=== PATIENT | female | born 1995 | race African-American/Black ===

== ENCOUNTER 2020-10-18 12:51 | Emergency (ER) | payer MEDICAID, OTHER ==
[~2020-10-18] VITALS: Ht 162.6 cm; Wt 56.7 kg
[2020-10-18 13:44] VITALS: BP 147/95
[2020-10-18 15:59] LABS: Urine Bacteria NONE SEEN /hpf (None Seen); Urine Blood Negative /uL (Negative); Urine Specific Gravity 1.008 (1.001-1.035); Urine WBC 4 /hpf (0 - 5)
[2020-10-18 22:17] LABS: Basophils # (auto) 0.1 10 ^3/uL (0-0.2); Basophils % (auto) 0.9 % (0.0-2.0); Eosinophils # (auto) 0.1 10 ^3/uL (0-0.8); Eosinophils % (auto) 1.1 % (0.0-7.0); Hematocrit 39.9 % (36.0-46.0); Mean Corpuscular Hemoglobin 32.7 pg (28.0-32.0); Mean Corpuscular Hgb Conc. 35.1 g/dL (32.0-36.0); Mean Corpuscular Volume 93.1 fL (80.0-100.0); Monocytes # (auto) 0.4 10 ^3/uL (0-1.3); Monocytes % (auto) 5.6 % (0.0-12.0); Neutrophils # (auto) 2.9 10 ^3/uL (1.6-8.6); Neutrophils % (auto) 45.4 % (37.0-80.0); Nucleated Red Blood Cells % 0.2 %; Platelet Count (auto) 386 10^3/uL (140-450); Red Blood Cells 4.28 10^6/uL (4.0-5.20); Red Cell Distribution Width 12.7 % (11.8-14.3); White Blood Cell 6.4 10^3/uL (4.4-10.8)
[2020-10-18 22:24] LABS: INR 0.98 (0.9-1.15)
[2020-10-18 22:46] LABS: Calcium 9.3 mg/dL (8.5-10.1); Potassium 3.9 mmol/L (3.5-5.1)
[2020-10-18 22:51] LABS: BUN/Creatinine Ratio 12.7; Bilirubin, Total 0.2 mg/dL (0.2-1.0); Total Protein 8.4 g/dL (6.4-8.2)
== END 2020-10-19 01:54 | disposition home or self-care (01) ==
LOC: ER 12:51
DX: N93.9 Abnormal uterine and vaginal bleeding, unspecified (principal); Z87.59 Personal history of other complications of pregnancy, childbirth and the puerperium
CPT/HCPCS: 36415; 76801; 76817; 80053; 81001; 84702; 85025; 85610

== ENCOUNTER 2021-04-28 15:13 | Emergency (ER) | payer MEDICAID ==
[~2021-04-28] VITALS: Ht 162.6 cm; Wt 56.7 kg
[2021-04-28 15:16] VITALS: BP 147/87
== END 2021-04-28 18:24 | disposition left against medical advice (07) ==
LOC: ER 15:13
DX: N93.9 Abnormal uterine and vaginal bleeding, unspecified (principal); Z53.21 Procedure and treatment not carried out due to patient leaving prior to being seen by health care provider